=== PATIENT | male | born 1980 | race Two or more races ===

== ENCOUNTER 2024-06-05 20:51 | Inpatient (IN) | payer MEDICAID, MEDICARE, OTHER ==
[~2024-06-05] VITALS: Ht 180.3 cm; Wt 66.5 kg
--- NOTE | 2024-06-05 21:42 | ED.PDOC ---
GI ASSESSMENT HPI Comments HPI: Poor Historian. 45-year-old male presents to the emergency department by ambulance from home for generalized abdominal pain without associated symptoms. Patient states compliance with the insulin but he did not take any today considered and eat anything today. He denies any nausea or vomiting or diarrhea. Patient was tachycardic in the field 140-150 with stable blood pressure. His blood sugar read high per EMS. Past Medcial History: Diabetes Past Surgical History: REVIEW OF SYSTEMS: CONSTITUTIONAL: Denies acute: fever, diaphoresis, chills, HEAD: Denies acute: headache, photophobia Eyes: Denies acute: Double vision, vision loss, eye pain, eye discharge. EARS: Denies acute: tinnitus, hearing loss, ear discharge, ear pain, THROAT: Denies acute: sore throat, swelling, difficulty swallowing , pain with sw allowing, change in voice. NECK: Denies acute: neck pain, neck swelling, stiff neck. HEART: Denies acute : chest pain, palpitations, LUNGS: Denies acute: SOB, wheezing, cough, hemoptysis ABDOMEN: Denies acute: Nausea, Vomiting, diarrhea, melena , hematemesis, hematochezia SKIN: Denies acute: rash, redness, lesions, itchiness. EXTREMITIES: Denies acute: calf pain, numbness, tingling, weakness, denies pain in extremity. Denies acute: Low back pain. Neuro: Denies acute: focal neurological deficit, motor or sensory focal neurological deficit, tremors, seizure like activity, confusion, dizziness, change in mental status, loss of bowel or bladder function, cauda equina like symptoms. : Denies acute: dysuria, hematuria, flank pain, increase in urinary frequency. PSYCH: Denies acute: hallucination, suicidal ideation, homicidal ideation. PHYSICAL EXAM: General: Mild to moderate acute distress, awake and alert. Head: normocephalic, atraumatic. Neck: supple, trachea is midline, no swelling. Throat: Normal phonation. Eyes:, no erythema, no purulent discharge, no proptosis, no icterus. Heart: regular tachycardic, no significant murmur appreciated. Lungs: no apparent respiratory distress, Able to speak in full sentences. No wheezing, no rhonchi, no crackles. No stridors Clear to auscultation bilaterally. Abdomen: Generalized tender to palpation, non distended, soft, no guarding, no rebound, + bowel sounds. Neuro: Awake, Alert, oriented to name, self, situation, follows commands GCS=15. Speech is normal. Skin: no petechia, no purpura, no cyanosis, non-pale, not jaundice. Lower extremities: --no - Pitting edema no deformity, no focal swelling, no calf TTP. Makes eye contact. moves all four extremities. Face: no apparent facial droop. Ambulating in the ED independently. Chief Complaint: Abdominal Pain Time Seen by MD: 21:16 Reviewed Notes: Nurses Notes, Medications, Allergies Allergies: Coded Allergies: NO KNOWN ALLERGIES (Unverified , 06/05/24) Information Source: Patient, Emergency Med Personnel Mode of Arrival: EMS X-Ray, Labs, Meds, VS Vital Signs Date Time Temp Pulse Resp B/P (MAP) Pulse Ox O2 Delivery O2 Flow Rate FiO2 06/05/24 21:06 98.4 126 20 148/98 (115) 99 Lab Test 06/05/24 21:57 06/05/24 21:37 Range/Units Blood Gas Specimen Type Arterial Blood Gas Sample Site Left brachial Blood Gas Patient Temperature 37.0 Arterial Blood Date Drawn [id number] Arterial Blood pH 7.026 *L 7.350-7.450 Arterial Blood Partial Pressure CO2 < 12.6 *L 35.0-48.0 mmHg Arterial Blood Partial Pressure O2 124.9 H 83.0-108.0 mmHg Arterial Blood Oxygen Saturation 97.6 94.0-98.0 % Arterial Blood Oxyhemoglobin 96.4 94.0-98.0 % Arterial Blood Carboxyhemoglobin 0.7 0.5-1.5 % Arterial Blood Methemoglobin 0.5 0.0-1.5 % Jatinder Test N/a Blood Gas Total Hemoglobin 16.80 13.5-17.5 g/dL Blood Gas Liter Flow 0.00 Blood Gas Modality Room air FiO2 % 21.0 Blood Gas Comments abg out of amr range Blood Gas Critical Value Read Back yes Blood Gas Notified Whom Dr. beebe Blood Gas Notified Time [id number] Blood Gas Notified By bret barry,rt White Blood Count 16.6 H 4.4-10.8 10^3/uL Red Blood Count 5.68 4.5-5.90 10^6/uL Hemoglobin 16.9 13.5-17.5 g/dL Hematocrit 54.2 H 41.0-53.0 % Mean Corpuscular Volume 95.4 80.0-100.0 fL Mean Corpuscular Hemoglobin 29.8 28.0-32.0 pg Mean Corpuscular Hemoglobin Concent 31.2 L 32.0-36.0 g/dL Red Cell Distribution Width 14.5 H 11.8-14.3 % Platelet Count 254 140-450 10^3/uL Mean Platelet Volume 10.8 6.9-10.8 fL Neutrophils (%) (Auto) 87.7 H 37.0-80.0 % Lymphocytes (%) (Auto) 6.2 L 10.0-50.0 % Monocytes (%) (Auto) 6.0 0.0-12.0 % Eosinophils (%) (Auto) 0.0 0.0-7.0 % Basophils (%) (Auto) 0.1 0.0-2.0 % Neutrophils # (Auto) 14.5 H 1.6-8.6 10 ^3/uL Lymphocytes # (Auto) 1.0 0.4-5.4 10 ^3/uL Monocytes # (Auto) 1.0 0-1.3 10 ^3/uL Eosinophils # (Auto) 0 0-0.8 10 ^3/uL Basophils # (Auto) 0 0-0.2 10 ^3/uL Nucleated Red Blood Cells 0.1 % Sodium Level 138 136-145 mmol/L Potassium Level 5.1 3.5-5.1 mmol/L Chloride Level 104 98-107 mmol/L Carbon Dioxide Level < 10 *L 20-31 mmol/L Anion Gap 24.60271 H 5-15 Blood Urea Nitrogen 16 9-23 mg/dL Creatinine 2.19 H 0.700-1.30 mg/dL Glomerular Filtration Rate Calc 37 >90 mL/min BUN/Creatinine Ratio 7.3 L 10.0-20.0 Serum Glucose 590 *H 74-106 mg/dL Serum Osmolality 351 H 278-298 mOsm/kg Lactic Acid Level 3.1 *H 0.4-2.0 mmol/L Calcium Level 10.8 H 8.7-10.4 mg/dL Phosphorus Level 6.5 H 2.4-5.1 mg/dL Magnesium Level 2.2 1.6-2.6 mg/dL Total Bilirubin 0.3 0.2-1.0 mg/dL Aspartate Amino Transferase (AST) 12 L 13-40 U/L Alanine Aminotransferase (ALT) 18 7-40 U/L Alkaline Phosphatase 95 46-116 U/L Troponin I High Sensitivity 5 </=54 ng/L Total Protein 8.5 H 5.7-8.2 g/dL Albumin 5.2 H 3.2-4.8 g/dL Lipase 50 12-53 U/L Beta-Hydroxybutyric Acid > 4.500 H < 0.4 mmol/L Current Medications Medications (Trade) Dose Ordered Sig/Case Route Start Time Stop Time Status Last Admin Sodium Chloride 1,000 ml @ 1,000 mls/hr Q1H ONCE IV 06/05/24 21:30 06/05/24 22:29 DC 06/05/24 21:55 Insulin Human Regular (InsuLIN R) 5 units ONCE ONCE IV 06/05/24 21:30 06/05/24 21:31 DC 06/05/24 22:03 Sodium Bicarbonate 50 ml ONCE ONCE IV 06/05/24 21:30 06/05/24 21:31 DC 06/05/24 22:05 [place] [id number] Ph: [phone] DIAGNOSTIC IMAGING Diagnostic Imaging Report : [id number] Signed PATIENT: KELBY FRIEND ACCT: [id number] UNIT: [id number] : 07/27/1978 LOC: ER ROOM / BED: / AGE / SEX: 45 / M ADM STATUS: REG ER SERVICE 15 ORDERING PHYSICIAN: EMMY BEEBE DO PROCEDURE(s): ABPL - CT AB PEL WO CON-NO ORAL OR IV REASON: abd pain ORDER NUMBER(s): [id number], ACCESSION NUMBER(s): [id number] Exam: CT CT AB PEL WO CON-NO ORAL OR IV History: abd pain Comparison Study: None available at time of dictation. Technique: Multidetector spiral CT of the abdomen was performed from lung bases to pubic symphysis. Imaging was performed without IV contrast. Axial, coronal and sagittal multiplanar reformats were obtained from the axial data set by the technologist. Radiation Dose : 1. Abdomen/Pelvis: CTDIvol 5 mGy, DLP 308 mGy*cm. Findings: Evaluation of solid organs is limited due to lack of intravenous contrast use. Lung Bases: No acute or significant lung base finding. Normal heart size. No pleural or pericardial effusion. Liver: The liver is normal in size. No focal lesions. Gallbladder and Biliary Tree: Unremarkable Spleen: Unremarkable Pancreas: The pancreas is grossly normal in appearance. Adrenal Glands: Unremarkable Kidneys: Kidneys are grossly normal without calculi or hydronephrosis. Bladder: Grossly unremarkable for degree of distention. Bowel: The stomach is grossly normal in appearance. Akjj-iw-kzwvetfq fecal retention throughout the colon.. Normal appendix is visualized in the right lower quadrant without findings of appendicitis. Ascites: Absent Lymphadenopathy: No mesenteric, retroperitoneal or periportal lymphadenopathy. Abdominal Wall and Mesentery: Unremarkable. Vasculature: The visualized abdominal aorta is normal in size and caliber. Evaluation of abdominal and pelvic vessels is limited due to lack of intravenous contrast. Pelvic Organs: Unremarkable Musculoskeletal: No aggressive focal bony lesions, acute fractures or dislocation. IMPRESSION: Limited evaluation without IV/ oral contrast and motion artifact. No acute abdo rosie / pelvic abnormalities. Aofi-dl-nchlgmkh fecal retention throughout the colon. Appendix is normal. END IMPRESSION: ATED BY: TILA HENNESSY DO DICTATED DATE/TIME: 06/05/242245 SIGNED BY: TILA HENNESSY DO SIGNED DATE/TIME: 06/05/242245 CC: Time of 1ST Reevaluation: 22:56 Reevaluation 1ST: Improved Patient Education/Counseling: Diagnosis, Treatment Family Education/Counseling: No Family Present Departure 1 Departure Time of Disposition: 22:10 Impression: Primary Impression: DKA (diabetic ketoacidosis) Additional Impression: Abdominal pain Disposition: ADMITTED INPATIENT Admit to: ICU Condition: Critical Discharged With: Self I personally scribed for EMMY BEEBE DO ([email or web address]) on 06/06/24 at 01:32. Electronically submitted by Barrett Asher ([email or web address]). EMMY BEEBE DO Jun 05, 2024 21:42
[2024-06-05] MEDS: SODIUM CHLORIDE 0.9% 1,000 ML IV ONE (21:55)
[2024-06-05 22:02] LABS: Basophils # (auto) 0 10 ^3/uL (0-0.2); Basophils % (auto) 0.1 % (0.0-2.0); Eosinophils # (auto) 0 10 ^3/uL (0-0.8); Nucleated Red Blood Cells % 0.1 %
[2024-06-05] MEDS: InsuLIN REG 1unit/0.01ml Soln (100units/ml) IV ONE (22:03)
[2024-06-05 22:04] LABS: Hematocrit 54.2 % (41.0-53.0); Hemoglobin 16.9 g/dL (13.5-17.5); Lymphocytes % (auto) 6.2 % (10.0-50.0); Mean Corpuscular Hemoglobin 29.8 pg (28.0-32.0); Mean Corpuscular Hgb Conc. 31.2 g/dL (32.0-36.0); Mean Corpuscular Volume 95.4 fL (80.0-100.0); Neutrophils # (auto) 14.5 10 ^3/uL (1.6-8.6); Neutrophils % (auto) 87.7 % (37.0-80.0); Platelet Count (auto) 254 10^3/uL (140-450); Red Blood Cells 5.68 10^6/uL (4.5-5.90); Red Cell Distribution Width 14.5 % (11.8-14.3); White Blood Cell 16.6 10^3/uL (4.4-10.8)
[2024-06-05] MEDS: SODIUM BICARB 8.4% 50Meq/50ml SYR Vial IV ONE ×2 (22:05→22:42)
[2024-06-05 22:15] LABS: Alanine Aminotransferase 18 U/L (7-40); Alkaline Phosphatase 95 U/L (46-116); Anion Gap 24.00001 (5-15); BUN/Creatinine Ratio 7.3 (10.0-20.0); Blood Urea Nitrogen 16 mg/dL (9-23); Chloride 104 mmol/L (98-107); Lipase 50 U/L (12-53); Magnesium 2.2 mg/dL (1.6-2.6); Sodium 138 mmol/L (136-145)
[2024-06-05] MEDS ORDERED: ONDANSETRON HCL 4 MG/2 ML VIAL IV PRN (22:15)
[2024-06-05] MEDS ORDERED: MORPHINE SULFATE INJ 2 MG/ml SYRG IV PRN (22:15)
[2024-06-05] MEDS ORDERED: DEXTROSE (50%) 50ML SYRG IV PRN ×2 (22:15→23:00)
[2024-06-05] MEDS ORDERED: INSULIN DRIP 100 UNIT/100ML 100 ML IV SCH ×2 (22:15→23:00)
[2024-06-05] MEDS ORDERED: NITROGLYCERIN 0.4 MG SL TAB SL PRN (22:15)
[2024-06-05 22:18] LABS: Albumin 5.2 g/dL (3.2-4.8); Aspartate Aminotransferase 12 U/L (13-40); Bilirubin, Total 0.3 mg/dL (0.2-1.0); Calcium 10.8 mg/dL (8.7-10.4); Potassium 5.1 mmol/L (3.5-5.1)
[2024-06-05 22:20] VITALS: PULSE 141; RESP 20; O2SAT 97
[2024-06-05 22:25] LABS: Carbon Dioxide < 10 mmol/L (20-31); Lactic Acid w/Reflex 3.1 mmol/L (0.4-2.0)
[2024-06-05 22:26] LABS: Glucose 590 mg/dL (74-106); Total Protein 8.5 g/dL (5.7-8.2)
[2024-06-05] MEDS: ACCU-CHEK COMFORT CURVE STRIP VI SCH (22:36)
--- NOTE | 2024-06-05 22:38 | DVHHP2 ---
History of Present Illness Reason for Visit: Nausea and vomiting History of Present Illness 45-year-old male with a history of diabetes mellitus presents for evaluation of nausea and vomiting. Patient presents with a one day history of nausea and vomiting with diarrhea. Patient reports not taking his insulin for the past two days. On arrival patient was tachycardic in the 150s. Initial blood sugar reading was greater than 500. Denies chest pain or shortness for breath. Other acute complaints reported. Past Medical History Diabetes mellitus Past Surgical History Denies Family History Noncontributory Smoke: No ALCOHOL: none Drugs: None Lives: with Family Review of Systems Review of Systems Review of systems are currently negative otherwise addressed HPI. Allergies: Coded Allergies: NO KNOWN ALLERGIES (Unverified , 06/05/24) Medications Current Medications Medications Dose Ordered Sig/Case Route Start Time Stop Time Status Last Admin Dose Admin Sodium Chloride 1,000 ml @ 250 mls/hr Q4H IV 06/06/24 02:15 06/06/24 04:14 Sodium Chloride 1,000 ml @ 150 mls/hr Q6H40M IV 06/06/24 04:15 Insulin Human (Reg)/Sodium Chloride 100 ml @ 0.5 mls/hr Q24H IV 06/05/24 22:15 Dextrose 50 ml UD PRN IV 06/05/24 22:15 Diagnostic Test (Pha) 1 strip Q90MIN 06/05/24 22:30 Insulin Glargine 15 units DAILY SC 06/06/24 10:00 Ondansetron HCl 4 mg Q4HP PRN IV 06/05/24 22:15 Nitroglycerin 0.4 mg Q5MINP PRN SL 06/05/24 22:15 Morphine Sulfate 2 mg Q30M PRN IV 06/05/24 22:15 Exam Vital Signs Vital Signs Date Time Temp Pulse Resp B/P (MAP) Pulse Ox O2 Delivery O2 Flow Rate FiO2 06/05/24 21:06 98.4 126 20 148/98 (115) 99 Exam Gen: 45-year-old male in moderate distress Skin: Warm, dry, normal color and texture, no rash. HEENT: Normocephalic atraumatic, mucous membranes moist and pink. Neck: Cervical and supraclavicular nodes normal without enlargement, trachea is midline, thyroid gland is normal without masses. Pulmonary: Clear to auscultation and percussion bilaterally. Cardiac: Sinus tachycardia Abdomen: Soft, nontender, nondistended, bowel sounds present all 4 quadrants, no guarding, no rigidity, no organomegaly. Extremities: No cyanosis, clubbing, no edema Neuro: Cranial nerves II through XII grossly intact, normal affect and speech, no focal motor deficits. Labs/Xrays Labs Test 06/05/24 21:57 06/05/24 21:37 Range/Units Blood Gas Specimen Type Arterial Blood Gas Sample Site Left brachial Blood Gas Patient Temperature 37.0 Arterial Blood Date Drawn [id number] Arterial Blood pH 7.026 *L 7.350-7.450 Arterial Blood Partial Pressure CO2 < 12.6 *L 35.0-48.0 mmHg Arterial Blood Partial Pressure O2 124.9 H 83.0-108.0 mmHg Arterial Blood Oxygen Saturation 97.6 94.0-98.0 % Arterial Blood Oxyhemoglobin 96.4 94.0-98.0 % Arterial Blood Carboxyhemoglobin 0.7 0.5-1.5 % Arterial Blood Methemoglobin 0.5 0.0-1.5 % Jatinder Test N/a Blood Gas Total Hemoglobin 16.80 13.5-17.5 g/dL Blood Gas Liter Flow 0.00 Blood Gas Modality Room air FiO2 % 21.0 Blood Gas Comments abg out of amr range Blood Gas Critical Value Read Back yes Blood Gas Notified Whom Dr. chung Blood Gas Notified Time [id number] Blood Gas Notified By bret barry,rt Sodium Level 138 136-145 mmol/L Potassium Level 5.1 3.5-5.1 mmol/L Chloride Level 104 98-107 mmol/L Carbon Dioxide Level < 10 *L 20-31 mmol/L Anion Gap 24.03193 H 5-15 Blood Urea Nitrogen 16 9-23 mg/dL Creatinine 2.19 H 0.700-1.30 mg/dL Glomerular Filtration Rate Calc 37 >90 mL/min BUN/Creatinine Ratio 7.3 L 10.0-20.0 Serum Glucose 590 *H 74-106 mg/dL Lactic Acid Level 3.1 *H 0.4-2.0 mmol/L Calcium Level 10.8 H 8.7-10.4 mg/dL Magnesium Level 2.2 1.6-2.6 mg/dL Total Bilirubin 0.3 0.2-1.0 mg/dL Aspartate Amino Transferase (AST) 12 L 13-40 U/L Alanine Aminotransferase (ALT) 18 7-40 U/L Alkaline Phosphatase 95 46-116 U/L Troponin I High Sensitivity 5 </=54 ng/L Total Protein 8.5 H 5.7-8.2 g/dL Albumin 5.2 H 3.2-4.8 g/dL Lipase 50 12-53 U/L Assessment/Plan Assessment/Plan Assessment Diabetic ketoacidosis Acute kidney injury Severe dehydration Plan Admit the patient to [facility] to the hospitalist DKA protocol CT of the abdomen and pelvis pending Continue treatment per orders. Total critical care time excluding procedures performed this 50 minutes. Plan discussed with: Patient My Orders Orders - SELENE REED Procedure Category Date Status Time Insulin Drip Protocol [facility] 06/05/24 In Process Sodium Chloride 0.9% PHA 06/06/24 In Process 02:15 Sodium Chloride 0.9% PHA 06/06/24 In Process 04:15 Insulin Drip 100 PHA 06/05/24 In Process Unit/100ml (Myxredlin 22:15 Dextrose 50% Syringe PHA 06/05/24 In Process 22:15 Glucose Blood PHA 06/05/24 In Process (Accu-Chek Comfort 22:30 Basic Metabolic Panel LAB 06/06/24 Verified 04:00 Basic Metabolic Panel LAB 06/06/24 Verified 10:00 Basic Metabolic Panel LAB 06/06/24 Verified 16:00 Basic Metabolic Panel LAB 06/06/24 Verified 22:00 Urinalysis LAB 06/05/24 Logged 22:12 Neurological [facility] 06/05/24 In Process Assessment 22:12 Vs/Hemodynamics [facility] 06/05/24 In Process 22:12 Insulin Lantus PHA 06/06/24 In Process (Glargine) (Lantus) 10:00 Admit ADMIT 06/05/24 Transmitted 22:12 Ondansetron Hcl PHA 06/05/24 In Process (Zofran) 22:15 Npo (Nothing By DIET 06/06/24 Transmitted Mouth) Diet Breakfast Condition: Critical [facility] 06/05/24 In Process 22:12 Bedrest With Bathroom [facility] 06/05/24 In Process Privileg 22:12 Nitroglycerin PHA 06/05/24 In Process Sublingual (Ntrostat 22:15 Morphine Sulfate PHA 06/05/24 In Process Injection 22:15 Stat Ekg For Chest [facility] 06/05/24 In Process Pain 22:12 Notify Md Of Changes [facility] 06/05/24 In Process From Base 22:12 Distribution Operations Manager For [facility] 06/05/24 In Process 24 Hours 22:12 Emergency Dysrhythmia [facility] 06/05/24 In Process Protocol 22:12 Rhythm Strips Once [facility] 06/05/24 In Process Every Shift 22:12 Oxygen By Nasal RT 06/05/24 Transmitted Cannula 22:12 Sodium Bicarb PHA 06/05/24 Transmitted 50meq/50ml Vial 22:45 Date of Service: Jun 05, 2024 Billing Provider: SELENE REED Common Visit Codes: [id number] CARE 30-74 MIN SELENE REED Jun 05, 2024 22:38
--- NOTE | 2024-06-05 22:48 | DVH ---
Exam: CT CT AB PEL WO CON-NO ORAL OR IV History: abd pain Comparison Study: None available at time of dictation. Technique: Multidetector spiral CT of the abdomen was performed from lung bases to pubic symphysis. Imaging was performed without IV contrast. Axial, coronal and sagittal multiplanar reformats were ob tained from the axial data set by the technologist. Radiation Dose : 1. Abdomen/Pelvis: CTDIvol 5 mGy, DLP 308 mGy*cm. Findings: Evaluation of solid organs is limited due to lack of intravenous contrast use. Lung Bases: No acute or significant lung base finding. Normal heart size. No pleural or pericardial effusion. Liver: The liver is normal in size. No focal lesions. Gallbladder and Biliary Tree: Unremarkable Spleen: Unremarkable Pancreas: The pancreas is grossly normal in appearance. Adrenal Glands: Unremarkable Kidneys: Kidneys are grossly normal without calculi or hydronephrosis. Bladder: Grossly unremarkable for degree of distention. Bowel: The stomach is grossly normal in appearance. Djye-xq-urteodgy fecal retention throughout the c olon.. Normal appendix is visualized in the right lower quadrant without findings of appendicitis. Ascites: Absent Lymphadenopathy: No mesenteric, retroperitoneal or periportal lymphadenopathy. Abdominal Wall and Mesentery: Unremarkable. Vasculature: The visualized abdominal aorta is normal in size and caliber. Evaluation of abdominal a nd pelvic vessels is limited due to lack of intravenous contrast. Pelvic Organs: Unremarkable Musculoskeletal: No aggressive focal bony lesions, acute fractures or dislocation. IMPRESSION: Limited evaluation without IV/ oral contrast and motion artifact. No acute abdominal / pelvic abnorm alities. Rgmp-jw-zrivkhrp fecal retention throughout the colon. Appendix is normal. END IMPRESSION:
[2024-06-05] MEDS: SODIUM CHLORIDE 0.9% 1,000 ML IV SCH (23:00)
[2024-06-05] MEDS: INSULIN LANTUS (GLARGINE) 1 /0.01ml (100units/ml) SC ONE (23:00)
[2024-06-05] MEDS: INSULIN DRIP 100 UNIT/100ML 100 ML IV SCH (23:29)
[2024-06-06] MEDS: SODIUM CHLORIDE 0.9% 1,000 ML IV SCH ×2 (02:15→14:03)
[2024-06-06 02:19] LABS: Urine Bacteria None Seen /hpf (None Seen)
[2024-06-06 02:29] LABS: Urine Blood Negative /uL (Negative); Urine Clarity Clear (Clear); Urine Color Colorless (Yellow); Urine Protein, UAD 1+ (Negative); Urine Specific Gravity 1.025 (1.001-1.035); Urine Squamous Epithelial Cell None Seen /hpf (<5); Urine Urobilinogen Normal (Negative); Urine WBC <1 /hpf (0 - 3)
[2024-06-06 02:42] LABS: Amphetamine Screen, Urine Neg (NEGATIVE); Barbiturate Scree,Urine Neg (NEGATIVE); Benzodiazephine Screen, Urine Neg (NEGATIVE); Cocaine Screen, Urine Neg (NEGATIVE); Opiate Scree,Urine Neg (NEGATIVE); Phencyclidine Screen, Urine Neg (NEGATIVE)
[2024-06-06 02:43] LABS: Cannabinoid Screen, Urine Neg (NEGATIVE)
[2024-06-06] MEDS ORDERED: SODIUM CHLORIDE 0.9% 1,000 ML IV SCH (04:15)
[2024-06-06 05:10] LABS: Anion Gap 15 (5-15)
[2024-06-06 05:11] LABS: Calcium 9.5 mg/dL (8.7-10.4)
[2024-06-06 05:16] LABS: BUN/Creatinine Ratio 7.6 (10.0-20.0); Blood Urea Nitrogen 11 mg/dL (9-23)
[2024-06-06 05:26] LABS: Potassium 3.4 mmol/L (3.5-5.1); Sodium 149 mmol/L (136-145)
[2024-06-06 05:27] LABS: Carbon Dioxide 14 mmol/L (20-31); Chloride 120 mmol/L (98-107); Glucose 202 mg/dL (74-106)
[2024-06-06] MEDS: D5W/SOD CHL 0.45% 1,000 ML IV SCH (06:40)
[2024-06-06] MEDS: POTASSIUM CHL 20MEQ/100ML 100 ML IV SCH (06:51)
[2024-06-06 08:15] VITALS: PULSE 84; RESP 12; O2SAT 96
[2024-06-06] MEDS: ACCU-CHEK COMFORT CURVE STRIP VI SCH ×3 (08:44→15:59)
[2024-06-06 09:43] LABS: Potassium 3.7 mmol/L (3.5-5.1)
[2024-06-06 09:44] LABS: Anion Gap 11 (5-15)
[2024-06-06 09:45] LABS: Calcium 9.3 mg/dL (8.7-10.4)
[2024-06-06 09:49] LABS: BUN/Creatinine Ratio 6.8 (10.0-20.0); Blood Urea Nitrogen 10 mg/dL (9-23)
[2024-06-06 09:51] LABS: Carbon Dioxide 19 mmol/L (20-31); Chloride 119 mmol/L (98-107); Glucose 258 mg/dL (74-106); Sodium 149 mmol/L (136-145)
[2024-06-06] MEDS: INSULIN LANTUS (GLARGINE) 1 /0.01ml (100units/ml) SC SCH (10:12)
[2024-06-06 10:44] LABS: Anion Gap 11 (5-15); Potassium 3.6 mmol/L (3.5-5.1)
[2024-06-06 10:45] LABS: Calcium 9.3 mg/dL (8.7-10.4)
[2024-06-06 10:47] LABS: Carbon Dioxide 19 mmol/L (20-31); Chloride 119 mmol/L (98-107); Sodium 149 mmol/L (136-145)
[2024-06-06 10:51] LABS: BUN/Creatinine Ratio 7.7 (10.0-20.0); Blood Urea Nitrogen 11 mg/dL (9-23)
[2024-06-06 10:53] LABS: Glucose 277 mg/dL (74-106)
[2024-06-06] MEDS ORDERED: DEXTROSE (50%) 50ML SYRG IV PRN (13:30)
[2024-06-06] MEDS: InsuLIN REG 1unit/0.01ml Soln (100units/ml) SC SCH (16:01)
--- NOTE | 2024-06-06 16:42 | DVHPN2 ---
Subjective Patient denies any symptoms at this time Reviewed: Care Plan, H&P, Labs, Medications Changes from previous H/P or p: No Changes General: Per HPI Objective Vitals Vital Signs Date Time Temp Pulse Resp B/P (MAP) Pulse Ox O2 Delivery O2 Flow Rate FiO2 06/06/24 16:00 71 16 107/75 (86) 96 06/06/24 12:00 98.6 98.6 06/06/24 08:15 Room Air* 0 21 Intake/Output Intake and Output 06/06/24 07:00 Intake Total 3876 ml Output Total 1200 ml Balance 2676 ml Intake IV Total 3876 ml Output Urine Total 1200 ml General Appearance: Alert, Oriented X3, Cooperative, No acute distress HEENT: Atraumatic, PERRLA Lungs: Clear to auscultation, Normal air movement Cardiovascular: Normal S1, Normal S2 Abdomen: Normal bowel sounds, Soft, No tenderness, No hepatospenomegaly, No masses Musculoskeletal: Normal sensory function, Normal motor function Neuro: Normal gait, Normal speech Psych/Mental Status: Mental status NL, Mood NL Medications Current Medications Medications Dose Ordered Sig/Case Route Start Time Stop Time Status Last Admin Dose Admin Insulin Glargine 15 units DAILY SC 06/06/24 10:00 06/06/24 10:12 15 UNITS Ondansetron HCl 4 mg Q4HP PRN IV 06/05/24 22:15 Nitroglycerin 0.4 mg Q5MINP PRN SL 06/05/24 22:15 Morphine Sulfate 2 mg Q30M PRN IV 06/05/24 22:15 Diagnostic Test (Pha) 1 strip IQ4HR 06/06/24 16:00 06/06/24 15:59 1 STRIP Insulin Human Regular IQ4HR SC 06/06/24 16:00 06/06/24 16:01 3 UNITS Dextrose 50 ml UD PRN IV 06/06/24 13:30 Sodium Chloride 1,000 ml @ 100 mls/hr Q10H IV 06/06/24 13:30 06/06/24 14:03 100 MLS/HR Laboratory Results Laboratory Tests 06/05/24 21:37 06/06/24 10:01 Chemistry Test 06/05/24 21:37 06/06/24 04:15 06/06/24 09:05 06/06/24 10:01 Albumin 5.2 g/dL (3.2-4.8) H Calcium Level 10.8 mg/dL (8.7-10.4) H 9.5 mg/dL (8.7-10.4) 9.3 mg/dL (8.7-10.4) 9.3 mg/dL (8.7-10.4) Magnesium Level 2.2 mg/dL (1.6-2.6) Phosphorus Level 6.5 mg/dL (2.4-5.1) H Total Protein 8.5 g/dL (5.7-8.2) H Lipid panel Test 06/05/24 21:37 Lipase 50 U/L (12-53) LFT Test 06/05/24 21:37 Alanine Aminotransferase (ALT) 18 U/L (7-40) Alkaline Phosphatase 95 U/L (46-116) Aspartate Amino Transferase (AST) 12 U/L (13-40) L Total Bilirubin 0.3 mg/dL (0.2-1.0) Urinalysis Test 06/06/24 02:08 Urine Color Colorless (Yellow) Urine Clarity Clear (Clear) Urine pH 5.0 (5.0-9.0) Urine Specific [place] 1.025 (1.001-1.035) Urine Protein 1+ (Negative) H Urine Ketones 4+ (Negative) H Urine Blood Negative /uL (Negative) Urine Nitrite Negative (Negative) Urine Bilirubin Negative (Negative) Urine Urobilinogen Normal mg/dL (Negative) Urine Leukocyte Esterase Negative /uL (Negative) Urine RBC None seen /hpf (0 - 3) Urine WBC <1 /hpf (0 - 3) Urine Squamous Epithelial Cells None seen /hpf (<5) Urine Bacteria None seen /hpf (None Seen) Urine Glucose 4+ mg/dL (Normal) H Blood Gas Results Test 06/05/24 21:57 Arterial Blood pH 7.026 (7.350-7.450) FiO2 % 21.0 Labs and/or images reviewed: Labs reviewed by me, Image(s) reviewed by me Assessment/Plan Assessment/Plan Impression: -diabetic ketoacidosis -diabetes mellitus -leukocytosis, probable sirs response without organ dysfunction -acute kidney injury, vasomotor nephropathy Plan: -stop insulin drip, transitioned to regular insulin sliding scale -continue [id number] units daily -change IV fluids to normal saline at 100 mL/hr -repeat BMP, Mag, phos in a.m. -transfer to Medical/Surgical floor. -start consistent carbohydrate diet Total time spent with patient discussing and formulating plan of care: 35 minutes. This medical document was created using an electronic medical record system with [employer] dictation system. Although this document has been carefully reviewed, there may still be some phonetic and typographical errors. These areas are purely typographical due to imperfections of the software programs, and do not reflect any compromise in the patient's medical care. Plan discussed with: Patient, Other (RN) My Orders Orders - THEE BARTH NP Procedure Category Date Status Time Consistent DIET 06/06/24 Transmitted Carb(Ccho)Diabetes Lunch Glucose Blood PHA 06/06/24 In Process (Accu-Chek Comfort 16:00 Insulin R (Human) PHA 06/06/24 In Process (Insulin R) 16:00 Dextrose 50% Syringe PHA 06/06/24 In Process 13:30 Basic Metabolic Panel LAB 06/07/24 Verified 04:00 Phosphorus LAB 06/07/24 Verified 04:00 Magnesium LAB 06/07/24 Verified 04:00 Transfer Orders XFER 06/06/24 Transmitted 13:22 Sodium Chloride 0.9% PHA 06/06/24 In Process 13:30 Complete Blood Count LAB 06/07/24 Verified 04:00 Date of Service: Jun 06, 2024 Billing Provider: THEE BARTH NP Common Visit Codes: [id number] INP/OBS CARE(HIGH) THEE BARTH NP Jun 06, 2024 16:42
[2024-06-06 17:23] VITALS: BP 97/70; PULSE 75; RESP 17; TEMP 98.6; O2SAT 99
[2024-06-06 17:49] VITALS: BP 97/70; PULSE 70; RESP 17; TEMP 98.6; O2SAT 99
[2024-06-06] MEDS ORDERED: INSLANTI SC (18:15)
[2024-06-06 20:00] VITALS: PULSE 71; RESP 18; O2SAT 97
[2024-06-06 21:00] VITALS: BP 99/68; PULSE 71; RESP 18; TEMP 98.2; O2SAT 97
[2024-06-07 01:00] VITALS: BP 91/56; PULSE 64; RESP 18; TEMP 98; O2SAT 97
[2024-06-07 05:00] VITALS: BP 90/59; PULSE 62; RESP 18; TEMP 97.7; O2SAT 97
[2024-06-07 06:27] LABS: Anion Gap 9 (5-15); Calcium 9.3 mg/dL (8.7-10.4); Sodium 145 mmol/L (136-145)
[2024-06-07 06:30] LABS: Basophils # (auto) 0 10 ^3/uL (0-0.2); Basophils % (auto) 0.6 % (0.0-2.0); Eosinophils # (auto) 0.1 10 ^3/uL (0-0.8); Eosinophils % (auto) 0.9 % (0.0-7.0); Hematocrit 34.6 % (41.0-53.0); Lymphocytes # (auto) 2.2 10 ^3/uL (0.4-5.4); Lymphocytes % (auto) 37.4 % (10.0-50.0); Mean Corpuscular Hemoglobin 29.7 pg (28.0-32.0); Mean Corpuscular Hgb Conc. 34.6 g/dL (32.0-36.0); Mean Corpuscular Volume 85.8 fL (80.0-100.0); Monocytes # (auto) 0.3 10 ^3/uL (0-1.3); Monocytes % (auto) 5.3 % (0.0-12.0); Neutrophils # (auto) 3.3 10 ^3/uL (1.6-8.6); Neutrophils % (auto) 55.8 % (37.0-80.0); Platelet Count (auto) 140 10^3/uL (140-450); Red Blood Cells 4.04 10^6/uL (4.5-5.90); Red Cell Distribution Width 13.2 % (11.8-14.3); White Blood Cell 5.9 10^3/uL (4.4-10.8)
[2024-06-07 06:33] LABS: BUN/Creatinine Ratio 8.5 (10.0-20.0); Blood Urea Nitrogen 9 mg/dL (9-23); Magnesium 1.7 mg/dL (1.6-2.6)
[2024-06-07 06:35] LABS: Carbon Dioxide 20 mmol/L (20-31); Chloride 116 mmol/L (98-107); Glucose 169 mg/dL (74-106); Phosphorus 1.8 mg/dL (2.4-5.1); Potassium 2.7 mmol/L (3.5-5.1)
[2024-06-07 07:40] VITALS: RESP 18
[2024-06-07 08:50] VITALS: BP 93/63; PULSE 61; RESP 18; TEMP 98.6; O2SAT 99
[2024-06-07] MEDS: POTASSIUM PHOSPHATE 22 MEQ in SODIUM CHL 0.9% 100 ML IV ONE (11:18)
[2024-06-07 11:50] VITALS: BP 103/71; PULSE 50; RESP 20; TEMP 97.8; O2SAT 96
--- NOTE | 2024-06-07 12:46 | DVHDS2 ---
Discharge Summary Date of Admission Jun 05, 2024 at 22:12 Date of Discharge: Jun 07, 2024 Admitting Diagnosis Diabetic ketoacidosis Labs/Diagnostic Data: Laboratory Results Test 06/07/24 08:18 06/07/24 05:53 06/06/24 04:15 06/06/24 02:08 POC Glucose 154 mg/dl (70-106) White Blood Count 5.9 10^3/uL (4.4-10.8) Red Blood Count 4.04 10^6/uL (4.5-5.90) Hemoglobin 12.0 g/dL (13.5-17.5) Hematocrit 34.6 % (41.0-53.0) Mean Corpuscular Volume 85.8 fL (80.0-100.0) Mean Corpuscular Hemoglobin 29.7 pg (28.0-32.0) Mean Corpuscular Hemoglobin Concent 34.6 g/dL (32.0-36.0) Red Cell Distribution Width 13.2 % (11.8-14.3) Platelet Count 140 10^3/uL (140-450) Mean Platelet Volume 9.8 fL (6.9-10.8) Neutrophils (%) (Auto) 55.8 % (37.0-80.0) Lymphocytes (%) (Auto) 37.4 % (10.0-50.0) Monocytes (%) (Auto) 5.3 % (0.0-12.0) Eosinophils (%) (Auto) 0.9 % (0.0-7.0) Basophils (%) (Auto) 0.6 % (0.0-2.0) Neutrophils # (Auto) 3.3 10 ^3/uL (1.6-8.6) Lymphocytes # (Auto) 2.2 10 ^3/uL (0.4-5.4) Monocytes # (Auto) 0.3 10 ^3/uL (0-1.3) Eosinophils # (Auto) 0.1 10 ^3/uL (0-0.8) Basophils # (Auto) 0 10 ^3/uL (0-0.2) Nucleated Red Blood Cells 0.0 % Sodium Level 145 mmol/L (136-145) Potassium Level 2.7 mmol/L (3.5-5.1) Chloride Level 116 mmol/L (98-107) Carbon Dioxide Level 20 mmol/L (20-31) Anion Gap 9 (5-15) Blood Urea Nitrogen 9 mg/dL (9-23) Creatinine 1.06 mg/dL (0.700-1.30) Glomerular Filtration Rate Calc 90 mL/min (>90) BUN/Creatinine Ratio 8.5 (10.0-20.0) Serum Glucose 169 mg/dL (74-106) Calcium Level 9.3 mg/dL (8.7-10.4) Phosphorus Level 1.8 mg/dL (2.4-5.1) Magnesium Level 1.7 mg/dL (1.6-2.6) Hemoglobin A1c > 14.0 % A1C (<5.7) Urine Color Colorless (Yellow) Urine Clarity Clear (Clear) Urine pH 5.0 (5.0-9.0) Urine Specific [place] 1.025 (1.001-1.035) Urine Protein 1+ (Negative) Urine Ketones 4+ (Negative) Urine Blood Negative /uL (Negative) Urine Nitrite Negative (Negative) Urine Bilirubin Negative (Negative) Urine Urobilinogen Normal mg/dL (Negative) Urine Leukocyte Esterase Negative /uL (Negative) Urine RBC None seen /hpf (0 - 3) Urine WBC <1 /hpf (0 - 3) Urine Squamous Epithelial Cells None seen /hpf (<5) Urine Bacteria None seen /hpf (None Seen) Urine Glucose 4+ mg/dL (Normal) Urine Opiates Screen Neg (NEGATIVE) Urine Fentanyl Screen Neg (NEGATIVE) Urine Barbiturates Screen Neg (NEGATIVE) Urine Phencyclidine Screen Neg (NEGATIVE) Urine Amphetamines Screen Neg (NEGATIVE) Urine Benzodiazepines Screen Neg (NEGATIVE) Urine Cocaine Screen Neg (NEGATIVE) Urine Cannabinoids Screen Neg (NEGATIVE) Test 06/05/24 23:30 06/05/24 21:57 06/05/24 21:37 Lactic Acid Level 3.3 mmol/L (0.4-2.0) Blood Gas Specimen Type Arterial Blood Gas Sample Site Left brachial Blood Gas Patient Temperature 37.0 Arterial Blood Date Drawn [id number] Arterial Blood pH 7.026 (7.350-7.450) Arterial Blood Partial Pressure CO2 < 12.6 mmHg (35.0-48.0) Arterial Blood Partial Pressure O2 124.9 mmHg (83.0-108.0) Arterial Blood Oxygen Saturation 97.6 % (94.0-98.0) Arterial Blood Oxyhemoglobin 96.4 % (94.0-98.0) Arterial Blood Carboxyhemoglobin 0.7 % (0.5-1.5) Arterial Blood Methemoglobin 0.5 % (0.0-1.5) Jatinder Test N/a Blood Gas Total Hemoglobin 16.80 g/dL (13.5-17.5) Blood Gas Liter Flow 0.00 Blood Gas Modality Room air FiO2 % 21.0 Blood Gas Comments abg out of amr range Blood Gas Critical Value Read Back yes Blood Gas Notified Whom Dr. chung Blood Gas Notified Time [id number] Blood Gas Notified By bret barry,rt Serum Osmolality 351 mOsm/kg (278-298) Total Bilirubin 0.3 mg/dL (0.2-1.0) Aspartate Amino Transferase (AST) 12 U/L (13-40) Alanine Aminotransferase (ALT) 18 U/L (7-40) Alkaline Phosphatase 95 U/L (46-116) Troponin I High Sensitivity 5 ng/L (</=54) Total Protein 8.5 g/dL (5.7-8.2) Albumin 5.2 g/dL (3.2-4.8) Lipase 50 U/L (12-53) Beta-Hydroxybutyric Acid > 4.500 mmol/L (< 0.4) Other Laboratory Tests 06/07/24 05:53 Brief Hx & Hospital Course: History of Present Illness 45-year-old male with a history of diabetes mellitus presents for evaluation of nausea and vomiting. Patient presents with a one day history of nausea and vomiting with diarrhea. Patient reports not taking his insulin for the past two days. On arrival patient was tachycardic in the 150s. Initial blood sugar reading was greater than 500. Denies chest pain or shortness for breath. Other acute complaints reported. Course of hospitalization: Patient was started on insulin drip, aggressive IV hydration with patient's blood sugars improving. Anion gap closed. Patient was transitioned to long- acting insulin as well as sliding scale. Patient was found to be hypokalemic. Patient had appropriate replete four all electrolytes. CBC is now normal. Patient was states that he has adequate medications at home for his diabetes mellitus. He states that he was unsure why his blood sugars have banana control. He was instructed to follow up with the discharge Clinic in one week if he can not follow up with his PCP in 1-2 weeks. Physical examination General: Alert and Oriented x3. No acute distress. Well-nourished. Eyes: EOMI. Anicteric. HENT: Moist mucous membranes. Lungs: Clear to auscultation bilaterally. No accessory muscle use. Cardiovascular: Regular rate and rhythm. No murmur. No JVD. Abdomen: Soft, non-tender and non-distended. No palpable masses. Extremities: No edema. Non-tender. Skin: No rashes or lesions. Warm. Neurologic: No focal neurological deficits. CN II-XII grossly intact, but not individually tested. Psychiatric: Cooperative. Appropriate mood and affect. Total time spent with patient discussing and formulating plan of care: 35 minutes. This medical document was created using an electronic medical record system with [employer] system. Although this document has been carefully reviewed, there may still be some phonetic and typographical errors. These areas are purely typographical due to imperfections of the software programs, and do not reflect any compromise in the patient's medical care. Condition at Discharge: Fair Final Diagnosis/Problems List Diabetic ketoacidosis Secondary Diagnosis: -diabetes mellitus -leukocytosis, probable sirs response without organ dysfunction -acute kidney injury, vasomotor nephropathy Discharge Disposition: Home Discharge Instruct/Medications Diet: Consistent carbohydrate Activity: See Comment Follow Up/Referral: Follow up with PCP in 1-2 weeks Medications: Continue all home medications for diabetes mellitus 36 Discharge Statement: "Patient was advised to return to the ER or call 911 if any headaches, dizziness, shortness of breath, chest pain, abdominal pain, bleeding, fevers, or worsening of medical condition. Patient was counseled about treatment plan, medications, possible side effects, patientverbalized understanding. All questions were answered to the best of my ability. This discharge took greater then 30 minutes in planning, reviewing documentation, counseling the patient, and discussing with other team members." ASSESSMENT ASSESSMENT Assessment Diabetic ketoacidosis Date of Service: Jun 07, 2024 Billing Provider: THEE BARTH NP Common Visit Codes: 55560-GMV/OBS DISCH DAY >30min THEE BARTH NP Jun 07, 2024 12:46
[2024-06-07 16:56] VITALS: BP 100/70; PULSE 78; RESP 20; TEMP 98.8; O2SAT 97
== END 2024-06-07 16:52 | disposition home or self-care (01) | DRG 420 ==
LOC: ER 20:51 → EDBD 20:51 → TELE 22:12 → EDBD 22:12 → TELE-EAST 06-06 17:11 → EAST 06-07 00:04
PROVIDERS: ADMIT Nurse Practitioner Acute Care; ATTEND Nurse Practitioner Acute Care
DX: E11.10 Type 2 diabetes mellitus with ketoacidosis without coma (principal); N17.0 Acute kidney failure with tubular necrosis; R65.10 Systemic inflammatory response syndrome (SIRS) of non-infectious origin without acute organ dysfunction; E86.0 Dehydration; D72.829 Elevated white blood cell count, unspecified; E87.6 Hypokalemia; R00.0 Tachycardia, unspecified; Z91.128 Patient's intentional underdosing of medication regimen for other reason
CPT/HCPCS: 36415; 36600; 74176; 80048; 80053; 80307; 81001; 82010; 82805; 82962; 83036; 83605; 83690; 83735; 83930; 84100; 84132; 84484; 85025; G0378; J1815; J3480